=== PATIENT | male | born 1975 | race Hispanic/Latino ===

== ENCOUNTER 2020-05-15 20:39 | Observation (INO) | payer BC, SELFPAY ==
--- NOTE | ~2020-05-15 | XR_ITS ---
EXAMINATION: XR chest 2V DATE: 05/15/2020 21:18 INDICATION: Left-sided chest pain TECHNIQUE: PA and lateral views of the chest are obtained. COMPARISON: None available FINDINGS: The lungs are free of acute opacities. The lung volumes are low. There is no pleural effusi on or pneumothorax. The cardiomediastinal silhouette is normal. There is mild thoracic spondylosis. IMPRESSION: 1. No acute cardiopulmonary abnormality. Reviewed, dictated and finalized at location A.
--- NOTE | 2020-05-15 20:40 | ECG_ITS ---
Measurements Intervals Medicine Bow Rate: 93 P: 28 MA: 150 QRS: -32 QRSD: 94 T: 15 QT: 336 QTc: 420 Interpretive Statements SINUS RHYTHM LEFT AXIS DEVIATION POOR R WAVE PROGRESSION, ANTERIOR LEADS BORDERLINE T WAVE ABNORMALITY- INFERIOR LEADS BASELINE ARTIFACT- I, II, III, AVR, AVL, AVF, V2-V6 BORDERLINE ECG Electronically Signed On 05-16-2020 6:52:11 CDT by Sebastián Lozada D.O.
[2020-05-15 20:42] VITALS: BP 155/84; PULSE 95; RESP 18; TEMP 36.4; O2SAT 96
--- NOTE | 2020-05-15 20:55 | ED.CHESTPAIN ---
HPI - Chest Pain General Chief Complaint: Chest Pain Stated Complaint: left sided cp Time Seen by Provider: 05/15/20 20:53 Source: patient Mode of arrival: ambulatory Limitations: no limitations History of Present Illness HPI narrative: Patient is a 45-year-old male complaining of chest pain, left-sided, 8 out of 10, tightness, radiating to his left arm started 2 days ago. Patient denies any shortness of breath, dull pain, nausea, vomiting, diaphoresis, fever or chills. Related Data Allergies Allergy/AdvReac Type Severity Reaction Status Date / Time No Known Allergies Allergy Verified 05/15/20 22:41 Review of Systems Review of Systems: All systems reviewed & are unremarkable except as noted in HPI and below Constitutional: Constitutional: Denies body ache(s), Denies chills, Denies excessive sweating, Denies fatigue, Denies fever(s), Denies headache(s), Denies lethargy, Denies malaise, Denies weakness and Denies weight loss Eyes: Eyes: Denies blurry vision, Denies change in vision and Denies loss of vision ENT: Denies dizziness, Denies ear discharge, Denies headache(s), Denies lip swelling, Denies epistaxis, Denies nasal congestion, Denies neck pain, Denies throat swelling and Denies tongue swelling Cardiovascular: Cardiovascular: Denies diaphoresis, Denies rapid heart rate, Denies edema, Denies irregular heart rhythm, Denies lightheadedness, Denies palpitations, Denies dyspnea and Denies dyspnea on exertion Respiratory: Respiratory: Denies chest congestion, Denies cough, Denies hemoptysis, Denies dyspnea and Denies dyspnea on exertion Gastrointestinal: Gastrointestinal: Denies abdominal pain, Denies melena, Denies hematochezia, Denies diarrhea, Denies nausea, Denies vomiting and Denies hematemesis Musculoskeletal: Musculoskeletal: Denies abnormal gait, Denies deformity, Denies joint swelling, Denies limited range of motion, Denies neck pain and Denies numbness Neurologic: Denies Abnormal speech present, Denies abnormal gait, Denies confusion, Denies dizziness, Denies headache(s), Denies focal weakness, Denies loss of vision, Denies numbness, Denies Other visual disturbances, Denies Sensory deficit (Neuro) and Denies weakness Psychiatric: Psychiatric: Denies confusion, Denies depression, Denies auditory hallucinations, Denies homicidal ideation and Denies suicidal ideation Endocrine: Endocrine: Denies cold intolerance, Denies excessive sweating, Denies fatigue, Denies heat intolerance and Denies palpitations Hematologic/Lymphatic: Hematologic/Lymphatic: Denies easy bleeding and Denies easy bruising Allergic/Immunologic: Allergic/Immunologic: Denies lip swelling, Denies throat swelling and Denies tongue swelling [facility] Social History Social History Gender identity (if verbalized by the patient): Male Comments Past medical history: None Family history: Negative for coronary disease negative for GA Social history: Non-smoker no EtOH or drug use Exam Const: General: cooperative, healthy appearing, comfortable, no acute distress, well developed, alert and awake; No confusion Orientation/consciousness: oriented to person, oriented to place, oriented to time, patient oriented x3 and No confusion Limitations: no limitations HENMT: Head: normal to inspection, normocephalic and atraumatic Ears: hearing grossly normal bilaterally, TM normal on the right and TM normal on the left General nose exam: Normal external nose present, Normal nares present and No nasal discharge present Face and sinus: normal facial exam Mouth: Yes Normal oral and palatal mucosa present, Yes lip normal, Yes tongue normal and Yes oropharynx normal Throat: posterior oropharynx normal, tonsils normal and uvula midline Eyes: General: appearance normal, both eyes and all related structures Pupils: Equal, round and reactive pupils present EOM: EOMs intact bilaterally Neck: Neck: normal visual inspection, full ROM, no lymphadenopathy and no meningeal signs Ch
[2020-05-15] MEDS: ASPIRIN 81 MG CHEWABLE TABLET 324 MG PO (21:03)
[2020-05-15 21:13] LABS: Basophils Percent Auto 0.4 % (0.2-1.2); Eosinophils Absolute Auto 0.1 K/mm3 (0-0.3); Eosinophils Percent Auto 1.7 % (0-4.4); Hematocrit 39.3 % (42.0-52.0); Hemoglobin 15.4 g/dL (14.0-18.0); Immature Granulocyte Absolute 0.02 K/mm3 (0.00-0.031); Immature Granulocyte Percent A 0.4 % (0-0.5); Lymphocytes Absolute Auto 1.74 K/mm3 (0.9-3.2); Lymphocytes Percent Auto 36.4 % (18.3-44.2); Mean Corpuscular Hemoglobin 33.6 pg (26-34); Mean Corpuscular Volume 85.6 fl (80-100); Mean Platelet Volume 10.3 fl (7.4-10.4); Monocytes Absolute Auto 0.3 K/mm3 (0.1-0.6); Monocytes Percent Auto 6.7 % (2.6-8.5); Neutrophils Absolute Auto 2.6 K/mm3 (1.3-6.7); Neutrophils Percent Auto 54.4 % (45.5-73.1); Platelet Count Result 186 k/mm3 (150-375); Red Blood Count 4.59 M/mm3 (4.6-6.20); Red Cell Distribution Width 12.3 % (11.5-14.5); White Blood Count 4.8 K/mm3 (4.5-10.0)
[2020-05-15 21:24] LABS: INR 0.9; Partial Thromboplastin Time 30.9 SECONDS (22.3-36.8)
[2020-05-15 21:36] LABS: Mean Corpuscular HGB Conc 39.2 g/dl (32-36)
[2020-05-15 22:33] VITALS: BP 131/86; PULSE 85; RESP 18; O2SAT 96
[2020-05-15] MEDS: NITROGLYCERIN SL 0.4 MG TABLET SUBLINGUAL (22:52)
[2020-05-15 22:55] LABS: Troponin I 0.012 ng/mL (0.000-0.034)
[2020-05-15 23:00] VITALS: BP 120/81; PULSE 86; RESP 19; O2SAT 95
[2020-05-15 23:15] VITALS: BP 113/82; PULSE 90; RESP 20; O2SAT 96
[2020-05-15 23:27] LABS: Blood Urea Nitrogen 15 mg/dL (9-20); Chloride 103 mmol/L (98-107)
[2020-05-15 23:28] LABS: Estimated CRCL calculation 109 ml/min; Estimated Glomerular Filt Rate > 60; Glucose 247 mg/dL (75-110)
[2020-05-15 23:31] LABS: Sodium 134 mmol/L (137-145)
[2020-05-16] VITALS (11 sets, daily range): BP systolic 120–135; BP diastolic 73–81; PULSE 72–104; RESP 12–20; TEMP 36.2–36.9; O2SAT 97–100; BMI 31.6
[2020-05-16] MEDS: NITROGLYCERIN OINTMENT 1 INCH DOSE TRANSDERM (00:06)
--- NOTE | 2020-05-16 00:57 | ADMGEN ---
This patient, Shar Chauhan, was admitted to IMU Room 211-01 at 0055. Patient/family oriented to hospital policies and general routines including ID bracelet, bed and alarms, visiting hours, pain management, procedures, bathroom and other care routines, personal items, smoking policy, room service/diet, and visiting hours. Information on how to activate the Rapid Response Team has been discussed. Patient/Family are encouraged to report perceived risks to care and to ask questions if they do not understand what they are told or what they should do.
--- NOTE | 2020-05-16 01:09 | ADMGEN ---
This patient, Shar Chauhan, was admitted to IMU Room 211-01 on 05-16-20 at 0055. Patient/family oriented to hospital policies and general routines including ID bracelet, bed and alarms, visiting hours, pain management, procedures, bathroom and other care routines, personal items, smoking policy, room service/diet, and visiting hours. Information on how to activate the Rapid Response Team has been discussed. Patient/Family are encouraged to report perceived risks to care and to ask questions if they do not understand what they are told or what they should do.
[2020-05-16 05:57] LABS: Cholesterol 252 mg/dL (0-200)
[2020-05-16 05:58] LABS: Troponin I < 0.012 ng/mL (0.000-0.034)
[2020-05-16 07:01] LABS: Triglycerides > 2625 mg/dL (<150)
[2020-05-16 07:31] LABS: LDL Cholesterol Direct < 60 mg/dL
[2020-05-16 08:21] LABS: Glucose Point of Care 287 (65-105)
[2020-05-16 11:20] LABS: Hemoglobin A1C 9.6 % (<5.7)
[2020-05-16 11:32] LABS: Alanine Aminotransferase 35 U/L (4-50); Albumin Level 4.6 g/dL (3.5-5.1); Alkaline Phosphatase 49 U/L (38-126); Aspartate Amino Transferase 62 U/L (17-59); Lipase 48 U/L (23-300)
[2020-05-16 11:37] LABS: Troponin I < 0.012 ng/mL (0.000-0.034)
[2020-05-16 12:16] LABS: Glucose Point of Care 260 (65-105)
[2020-05-16] MEDS: INSULIN ASPART (*BKC) 100 UNITS/ML SUB-Q (12:40)
[2020-05-16 13:31] LABS: Barbiturate Screen Urine Negative (Negative); Benzodiazepines Screen Urine Negative (Negative)
[2020-05-16 13:32] LABS: Cannabinoid Screen Urine Negative (Negative); Cocaine Screen Urine Negative (Negative); Methadone Screen Urine Negative (Negative); Opiate Screen Urine Negative (Negative); Phencyclidine Screen Urine Negative (Negative)
--- NOTE | 2020-05-16 14:27 | PM.SD2 ---
Same Day Admit/Disch: HPI History of Present Illness Chief complaint: chest pain Narrative: Shar Chauhan is a 45 year old male diabetes hypertriglyceridemia and obesity. Heis noncompliant with medical therapy and presents with c/c of chest pain of approximately 4 days worse with palpation over the anterior chest wall and movement of the left upper extremity, better with rest, Nonradiating, 9/10, stabbing quality. Current only has pain 4/10 when pressing over the chest wall. No pain otherwise. Patient states that yesterday he was trying to turn tire iron when the pain acutely worsened so he sought medical attention. He has no family history of coronary artery disease and he has no personal history coronary artery disease. [facility] Past Medical History Medical History (Updated 05/16/20 @ 14:44 by Vicky Mendiola MD) Daily consumption of alcohol Diabetes High triglycerides Medical non-compliance Tobacco use disorder, mild, abuse Surgical History Surgical History (Updated 05/16/20 @ 14:53 by Vicky Mendiola MD) H/O: knee surgery Family History Family History (Updated 05/16/20 @ 01:03 by Leila Reyes RN) Mother Diabetes mellitus Father Diabetes mellitus High cholesterol Social History Social History Smoking status: Current every day smoker Tobacco type: cigarettes Alcohol intake: current Substance use: never Substance use type: does not use Gender identity (if verbalized by the patient): Male Spiritual care concerns: No Same Day Admit/Disch: Med Pre-admit Medications Home Medications Medication Instructions Recorded Confirmed Type atorvastatin 80 mg PO DAILY 05/16/20 05/16/20 History metformin 500 mg PO BID 05/16/20 05/16/20 History Exam Narrative: Exam Narrative: GEN: NAD, AAOx3 cooperative HEENT: NCAT, MMM, EOMI Neck: no JVD nontender FROM Heart: S1S2 RRR, L anterior chest between 2nds -4th ribs TTP Lungs: CTA B/l , symmetric rise, no use of resp muscles, 0n RA Abd: soft, NT, ND, bowel sounds normoactive Ext: moves all, no cyanosis, no clubbing, no edema Neuro: AAOx3 no focal motor deficits, moves all extremities equally Psych: mood and affect congruent, no SI or HI DS: Data Data Completed and Pending Labs on day of discharge: Labs from last 24 hours 05/16/20 05/16/20 05/16/20 12:51 11:56 10:43 WBC RBC Hgb Hct MCV MCH MCHC RDW Plt Count MPV Immature Gran % (Auto) Neut % (Auto) Lymph % (Auto) Lucas % (Auto) Eos % (Auto) Baso % (Auto) Lymph # (Auto) Lucas # (Auto) Eos # (Auto) Baso # (Auto) Abs Immat Gran (auto) Absolute Neuts (auto) Absolute Nucleated RBC Nucleated RBC % PT INR APTT Sodium Potassium Chloride Carbon Dioxide Anion Gap BUN Creatinine Estim Creat Clear Calc Estimated GFR Glucose POC Capillary Glucose 260 H Hemoglobin A1c Calcium Total Bilirubin Direct Bilirubin AST ALT Alkaline Phosphatase Troponin I < 0.012 Total Protein Albumin Triglycerides Cholesterol LDL Cholesterol Direct HDL Direct Lipase TSH (Reflex) Urine Opiates Screen Negative Urine Methadone Screen Negative Ur Barbiturates Screen Negative Ur Phencyclidine Scrn Negative Ur Amphetamine Screen Pending U Benzodiazepines Scrn Negative Urine Cocaine Screen Negative U Cannabinoids Screen Negative 05/16/20 05/16/20 05/16/20 10:43 10:43 10:43 WBC RBC Hgb Hct MCV MCH MCHC RDW Plt Count MPV Immature Gran % (Auto) Neut % (Auto) Lymph % (Auto) Lucas % (Auto) Eos % (Auto) Baso % (Auto) Lymph # (Auto) Lucas # (Auto) Eos # (Auto) Baso # (Auto) Abs Immat Gran (auto) Absolute Neuts (auto) Absolute Nucleated RBC Nucleated RBC % PT INR APTT Sodium Potassium Chloride Car
[2020-05-17 13:55] LABS: Amphetamine Screen Urine Negative (Negative)
== END 2020-05-16 16:19 | disposition home or self-care (01) ==
LOC: ANHED 23:31 → ANHIMU 05-16 01:18
PROVIDERS: Admitting Provider Internal Medicine; Emergency Provider Emergency Medicine; PCP Family Medicine Adolescent Medicine; Visit Provider Hospitalist
DX: R07.9 Chest pain, unspecified (principal); E11.9 Type 2 diabetes mellitus without complications; E78.1 Pure hyperglyceridemia; Z91.19 Patient's noncompliance with other medical treatment and regimen; Z78.9 Other specified health status; E66.9 Obesity, unspecified; Z68.31 Body mass index [BMI] 31.0-31.9, adult; F17.210 Nicotine dependence, cigarettes, uncomplicated; Z79.84 Long term (current) use of oral hypoglycemic drugs
CPT/HCPCS: 36415; 71046; 80048; 80061; 80076; 80307; 83036; 83690; 84443; 84484; 85025; 85610; 85730; 93005; 99285; A9270; G0378; J1815